=== PATIENT | female | born 1945 | race African-American/Black ===

== ENCOUNTER 2017-03-01 13:49 | Emergency (ER) | payer OTHER ==
[~2017-03-01] VITALS: Ht 167.6 cm; Wt 104.8 kg
--- NOTE | ~2017-03-01 | EKG ---
[place] [address] [facility] [place] [address] ELECTROCARDIOGRAM REPORT Name: MAGDIEL HUBBARDTIANA AGRAWAL [facility] #: [facility] [id number] Admission: 03/01/17 Attend Phys: Discharge: 03/01/17 Date of : 43 Report #: [id number] THIS REPORT FOR: //name// [facility] Test Date: 2017-03-02 Test Time: 02:38:19 Pat Name: JORGE HUBBARD Department: Room: Gender: F Cargoman: . : 1945 Requested By: Antelmo De La Cruz Order Number: [id number] MD: Gurpreet Sanchez Measurements Intervals [place] Rate: 153 P: [place]: QRS: 100 QRSD: 89 T: -26 QT: 284 QTc: 454 Interpretive Statements Atrial fibrillation with rapid V-rate RVH with secondary repolarization abnrm ST depression, probably rate related Compared to ECG 11/02/2015 16:24:04 atrial fibrillation has replaced sinus rhythm nonspecific ST and T wave abnormality is now present Criteria for RVH now present Electronically Signed On 03-03-2017 8:49:32 CDT by Gurpreet Sanchez [email or web address] <ELECTRONICALLY SIGNED> By: Gurpreet Sanchez MD, [facility] 03/03/17 0849 0238 0238 Gurpreet Sanchez MD, [facility] /EPI
--- NOTE | ~2017-03-01 | EKG ---
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: : 1945 Requested By: Antelmo De La Cruz Order Number: [id number] MD: Gurpreet Sanchez Measurements Intervals [place] Rate: 78 P: 10 AR: 259 QRS: -15 QRSD: 88 T: 10 QT: 385 QTc: 439 Interpretive Statements Sinus rhythm Prolonged AR interval Left ventricular hypertrophy Poor R wave progression Compared to ECG 11/02/2015 16:24:04 No significant change was found Electronically Signed On 03-03-2017 8:39:26 CDT by Gurpreet Sanchez [email or web address] <ELECTRONICALLY SIGNED> By: Gurpreet Sanchez MD, [facility] 03/03/17 0839 06 06 Gurpreet Sanchez MD, [facility] /EPI
[~2017-03-01 13:49] MED LIST: ASPIR 8181 M1 PO; BACTRIM DS TAB1 EACH PO; CARDIZEM CD120 MG PO; COUMADIN 1MG TAB1 M1 PO; CYMBALTA30 MG PO; FOLIC ACID1 MG PO; HYDROCODONE-AP1 EAC6 PO; HYDROCODONE-AP1 EACH PO; IRON325 PO; LASIX 40 MG TAB40 M2 PO; LISINOPRIL10 MG PO; MIRALAX17 G1; OYSTER SHELL 51 EACH PO; POTASSIUM20 PO; PROBIOTIC1 EAC1 PO; PROSTAT; RIFADIN300 MG PO; TRINATE TABLET1 TAB PO; VITAMIN C500 M1 PO
[2017-03-01 15:06] LABS: ABSOLUTE NEUTROPHILS 4.4 thou/uL (1.4-8.2); BASOPHILS 0.5 % (0.0-2.0); EOSINOPHILS 1.4 % (0.0-3.0); HEMATOCRIT 36.4 % (37.0-47.0); HEMOGLOBIN 12.2 gm/dL (12.0-15.0); LYMPHOCYTES 16.8 % (24.0-44.0); MCH 29.4 pg (26.0-34.0); MCHC 33.6 g/dL (28.0-37.0); MCV 87.4 fL (80.0-100.0); MONOCYTES 5.5 % (1.0-8.0); PLATELET COUNT 236 thou/uL (150-400); POLYS 75.8 % (36.0-66.0); RBC 4.16 mil/uL (4.20-5.00); RDW 15.5 % (10.5-14.5); WBC 5.8 thou/uL (4.0-11.0)
[2017-03-01 15:09] LABS: MANUAL DIFF NO
[2017-03-01 15:19] LABS: ANION GAP 10 mmol/L (7-16); BUN 16 mg/dL (7-18); CHLORIDE 102 mmol/L (98-107); CO2 26 mmol/L (21-32); CREATININE 0.9 mg/dL (0.6-1.0); GLUCOSE 147 mg/dL (74-106); POTASSIUM 4.7 mmol/L (3.5-5.1); SODIUM 138 mmol/L (136-145)
[2017-03-01 15:32] LABS: ALBUMIN 3.1 g/dL (3.4-5.0); ALKALINE PHOSPHATASE 98 U/L (46-116); NT-PRO BRAIN NAT PEPTIDE 93 pg/mL (<300); SGOT 20 U/L (15-37); SGPT 17 U/L (30-65); TOTAL BILIRUBIN 0.2 mg/dL (<0.1-1.0); TOTAL PROTEIN 8.1 g/dL (6.4-8.2); TROPONIN-I < 0.04 ng/mL (<0.04-0.07)
[2017-03-01 16:28] LABS: URINE BILIRUBIN NEGATIVE (Negative); URINE BLOOD TRACE (Negative); URINE COLOR YELLOW; URINE GLUCOSE-RANDOM* NEGATIVE (Negative); URINE KETONES NEGATIVE (Negative); URINE NITRITE POSITIVE (Negative); URINE PROTEIN (DIPSTICK) TRACE (Negative); URINE SPECIFIC GRAVITY 1.025 (1.003-1.035); URINE UROBILINOGEN 0.2 E.U./dl (0.2-1.0)
[2017-03-01 16:48] LABS: BACTERIA >30 Many /HPF (None Seen); CASTS None Seen /LPF (None Seen); CRYSTALS None Seen /LPF (None Seen); SQUAMOUS >10 Many /LPF (0-3); URINE RBC 0-2 Rare /HPF (0-2); URINE WBC >25 Many /HPF (0-5)
[2017-03-01] MEDS ORDERED: BACTROBAN15 GM TP (17:00)
[2017-03-01] MEDS ORDERED: MACROBID 100 M100 M1 PO (17:00)
== END 2017-03-01 18:12 | disposition home or self-care (01) ==
LOC: ER 13:49
PROVIDERS: Physician Assistant
DX: R55 Syncope and collapse (principal); N39.0 Urinary tract infection, site not specified; L30.1 Dyshidrosis [pompholyx]; I13.0 Hypertensive heart and chronic kidney disease with heart failure and stage 1 through stage 4 chronic kidney disease, or unspecified chronic kidney disease; N18.9 Chronic kidney disease, unspecified; I50.9 Heart failure, unspecified; I25.10 Atherosclerotic heart disease of native coronary artery without angina pectoris; I48.91 Unspecified atrial fibrillation; F10.99 Alcohol use, unspecified with unspecified alcohol-induced disorder; M19.90 Unspecified osteoarthritis, unspecified site; Z98.890 Other specified postprocedural states; Z87.891 Personal history of nicotine dependence

== ENCOUNTER → 2017-03-23 | Outpatient (CLI) | payer OTHER ==
[~2017-03-23] MED LIST changes: +BACTROBAN15 GM TP; +MACROBID 100 M100 M1 PO
== END ==
LOC: CAT 09:59
DX: L03.317 Cellulitis of buttock (principal); M13.851 Other specified arthritis, right hip; M25.451 Effusion, right hip

== ENCOUNTER 2017-07-14 18:28 | Inpatient (IN) | payer OTHER ==
[~2017-07-14] VITALS: Ht 167.6 cm; Wt 112.7 kg
--- NOTE | ~2017-07-14 | EKG ---
[address] [place] [address] ELECTROCARDIOGRAM REPORT Name: JORGE HUBBARD Room #: 364-P ADM IN M.R.#: [id number] Admission: 07/14/17 Attend Phys: Gibran Garcia MD Discharge: Date of : 43 Report #: [id number] THIS REPORT FOR: //name// [facility] ED Test Date: 2017-07-14 Test Time: 18:48:13 Pat Name: JORGE HUBBARD Department: Room: 364 Gender: F Client Onboarding Analyst: GALE : 1945 Requested By: Itzel Ponce Order Number: [id number] MD: Gurpreet Sanchez Measurements Intervals [place] Rate: 176 P: [place]: QRS: -9 QRSD: 82 T: 33 QT: 271 QTc: 464 Interpretive Statements Atrial fibrillation with rapid V-rate ST depression, probably rate related Compared to ECG 03/02/2017 02:38:19 Right ventricular hypertrophy no longer present ST (T wave) deviation still present Electronically Signed On 07-15-2017 15:53:51 ONCOLOGY PHYSICIAN by Gurpreet Sanchez [email or web address] <ELECTRONICALLY SIGNED> By: Gurpreet Sanchez MD, [facility] 07/15/17 1553 1848 1848 Gurpreet Sanchez MD, [facility] /EPI
--- NOTE | ~2017-07-14 | H ---
[facility] [place] [address] HISTORY AND PHYSICAL Name: JORGE HUBBARD Room #: 364-P ADM IN M.R.#: [id number] Admission: 07/14/17 Attend Phys: Gibran Garcia MD Discharge: Date of : 43 Report #: [id number] THIS REPORT FOR: //name// CC: Cisco Garcia DATE OF SERVICE: 07/14/2017 HISTORY OF PRESENT ILLNESS: A 72-year-old female with a rapid heart rate at the [facility]: This is a patient who began to feel poorly at [facility] and she became concerned as did the staff and so she was transferred here and found to be in rapid atrial fibrillation. She really had no other symptoms leading up to this other than generalized malaise. PAST MEDICAL HISTORY: Significant for atrial fibrillation in the past. 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 ALLERGIES: SHE HAS ALLERGIES TO FELDENE AND DICLOFENAC. MEDICATIONS: List includes Bactrim, rifampin, diltiazem, aspirin, hydrocodone, duloxetine, nystatin, MiraLax, Silvadene, and vitamin ointment. PAST MEDICAL HISTORY: So my understanding is she has also had a right hip removal and so she is not ambulatory at this time, at the [facility]. Apparently, she is also on chronic suppression, but otherwise, her past history really is unremarkable. FAMILY HISTORY: Negative. SOCIAL HISTORY: She lives in [place]. No smoking or alcohol of any significance. REVIEW OF SYSTEMS: Really, no other complaints, no cardiopulmonary, GI complaints at this time. PHYSICAL EXAMINATION: GENERAL: Shows a delightful lady. She is lying in bed. She is awake, alert and oriented. She is in absolutely no distress. Her family is at the bedside. VITAL SIGNS: Stable. Her heart rate was around 100. HEENT: Otherwise, negative. NECK: Supple, without thyromegaly or adenopathy. CHEST: Clear. CARDIOVASCULAR: Shows an irregular rhythm without definite murmur. Rate around 100. ABDOMEN: Soft and nontender, without hepatosplenomegaly. EXTREMITIES: No cyanosis, clubbing or edema. [facility] [address] [place] [address] HISTORY AND PHYSICAL Name: JORGE HUBBARD TANJA Room #: 364-P ADM IN .R.#: [id number] Admission: 07/14/17 Attend Phys: Gibran Garcia MD Discharge: Date of : 43 Report #: [id number] NEUROLOGIC: Showed nothing focal. ASSESSMENT AND PLAN: This is a patient with a rapid atrial fibrillation who will probably need anticoagulation and attempts at cardioversion at some point if she does not convert on her own. The addition of amiodarone probably will be of benefit here. By: [id number] [id number] Cisco Alanis MD /PMT
--- NOTE | ~2017-07-14 | 2DMMODE ---
[facility] [address] [place] [address] 2 D/M-MODE ECHOCARDIOGRAM Name: JORGE HUBBARD Room #: 364-P ADM IN M.R.#: [id number] Admission: 07/14/17 Attend Phys: Jeremias Dow Discharge: Date of : 43 Date of Service: 07/17/17 1440 Report #: [id number] THIS REPORT FOR: //name// APPROVED REPORT Study performed: 07/17/2017 12:09:46 EXAM: Comprehensive 2D, Doppler, and color-flow Echocardiogram Patient Location: Bedside Room #: 364 Status: routine BSA: 2.20 HR: 90 bpm BP: 132/53 mmHg Rhythm: Atrial Fibrillation Other Information Study Quality: Adequate Technically limited study due to morbid obesity. Indications Atrial Fib with RVR 2D Dimensions RVDd: 39.97 mm LVEF(%): 32.17 (>50%) IVSd: 11.86 (7-11mm) LVOT Diam: 21.87 (18-24mm) LVDd: 40.46 mm PWd: 11.63 (7-11mm) LVDs: 34.39 (25-40mm) Aortic Root: 32.53 mm Pettit's LVEF: 32.17 % Volumes Left Atrial Volume (Systole) Single Plane 4CH: 48.00 mL Single Plane 2CH: 73.31 mL LA ESV Index: 29.00 mL/m2 Aortic Valve AoV Peak Mark.: 0.95 m/s AO Peak Gr.: 4.29 mmHg LVOT Max P.64 mmHg LVOT Max V: 0.64 m/s ED Vmax: 2.53 cm2 Mitral Valve MV Decel. Time: 166.43 ms [facility] [place] [address] 2 D/M-MODE ECHOCARDIOGRAM Name: JORGE HUBBARD [place] Room #: 364-P [facility] [place] ..#: [id number] Admission: 07/14/17 Attend Phys: Jeremias Dow Discharge: Date of : 43 Date of Service: 07/17/17 1440 Report #: [id number] MV E Max Mark.: 0.88 m/s Pulmonary Valve PV Peak Mark.: 0.75 m/s PV Peak Gr.: 2.30 mmHg Tricuspid Valve TR Peak Mark.: 2.76 m/s RAP Estimate: 10.00 mmHg TR Peak Gr.: 30.44 mmHg PA Pressure: 40.00 mmHg Left Ventricle The left ventricle is normal size. Mild concentric left ventricular hypertrophy. The left ventricular systolic function is low normal. LVEF is 50%. This study is not technically sufficient to allow evaluation of the LV diastolic function due to atrial fibrillation. Right Ventricle The right ventricle is normal size. The right ventricular systolic function is normal. Atria The left atrium size is normal. The right atrium size is normal. Aortic Valve The Aortic valve is mildly sclerotic. Trace aortic regurgitation. There is no aortic valvular stenosis. Mitral Valve The mitral valve is normal in structure. Trivial mitral annular calcification. Trace to mild mitral regurgitation. Tricuspid Valve The tricuspid valve is normal in structure. Mild to moderate tricuspid regurgitation. Estimated PAP is 40mmHg. Pulmonic Valve The pulmonary valve is normal in structure. Trace pulmonic regurgitation. Great Vessels The aortic root is normal in size. Ascending aorta is not well visualized. IVC is normal in size and collapses <50% with inspiration. [facility] [address] [place] [address] 2 D/M-MODE ECHOCARDIOGRAM Name: JORGE HUBBARD TANJA Room #: 364-P ADM IN .R.#: [id number] Admission: 07/14/17 Attend Phys: Jeremias Dow Discharge: Date of : 43 Date of Service: 07/17/17 1440 Report #: [id number] Pericardium There is no pericardial effusion. <Conclusion> The left ventricle is normal size. LVEF is 50%. The left atrium size is normal. The right atrium size is normal. The Aortic valve is mildly sclerotic. Trace aortic regurgitation. The mitral valve is normal in structure. Trivial mitral annular calcification. Trace to mild mitral regurgitation. The tricuspid valve is normal in structure. Mild to moderate tricuspid regurgitation. Estimated PAP is 40mmHg. The pulmonary valve is normal in structure. Trace pulmonic regurgitation. There is no pericardial effusion. <ELECTRONICALLY SIGNED> By: Corey Mcqueen MD 07/17/17 1440 1440 1440 Corey Mcqueen MD /INF
[~2017-07-14 18:28] MED LIST changes: -MIRALAX17 G1; +MIRALAX17 G1 PO
[2017-07-14 18:29] VITALS: BP 116/67
[2017-07-14 18:56] LABS: ABSOLUTE NEUTROPHILS 4.5 thou/uL (1.4-8.2); BASOPHILS 0.6 % (0.0-2.0); EOSINOPHILS 0.3 % (0.0-3.0); HEMOGLOBIN 12.8 gm/dL (12.0-15.0); LYMPHOCYTES 12.9 % (24.0-44.0); MCHC 33.8 g/dL (28.0-37.0); MCV 85.7 fL (80.0-100.0); MONOCYTES 9.2 % (1.0-8.0); PLATELET COUNT 236 thou/uL (150-400); RBC 4.43 mil/uL (4.20-5.00); WBC 5.9 thou/uL (4.0-11.0)
[2017-07-14 18:59] LABS: MANUAL DIFF NO
[2017-07-14 19:01] LABS: CALCIUM 9.1 mg/dL (8.5-10.1); CREATININE 1.2 mg/dL (0.6-1.0); POTASSIUM 4.6 mmol/L (3.5-5.1)
[2017-07-14 19:08] LABS: ALBUMIN 3.1 g/dL (3.4-5.0); DIRECT BILIRUBIN 0.3 mg/dL (<0.1-0.3); TOTAL BILIRUBIN 0.6 mg/dL (<0.1-1.0)
[2017-07-14 21:34] LABS: URINE BILIRUBIN 2+ (Negative); URINE BLOOD TRACE (Negative); URINE COLOR YELLOW; URINE GLUCOSE-RANDOM* TRACE (Negative); URINE KETONES TRACE (Negative); URINE PROTEIN (DIPSTICK) TRACE (Negative); URINE UROBILINOGEN 0.2 E.U./dl (0.2-1.0)
[2017-07-14 21:36] LABS: URINE LEUKOCYTES-REFLEX TRACE (Negative)
[2017-07-14 21:37] LABS: ICTOTEST (BILI CONFIRMATORY) Positive (Negative)
[2017-07-14 21:50] LABS: CASTS None Seen /LPF (None Seen); CRYSTALS None Seen /LPF (None Seen); SQUAMOUS 0-3 Few /LPF (0-3); YEAST-REFLEX Present (None Seen)
[2017-07-14 21:51] LABS: URINE RBC 0-2 Rare /HPF (0-2); URINE WBC-REFLEX 0-5 Rare /HPF (0-5)
[2017-07-14 23:07] VITALS: BP 151/70
[2017-07-14 23:34] VITALS: BP 125/53
[2017-07-15 01:03] VITALS: BP 126/70
[2017-07-15] MEDS ORDERED: NYATA15 GM TOP (02:13)
[2017-07-15] MEDS ORDERED: SILVADENE20 GM TOP (02:14)
[2017-07-15] MEDS ORDERED: VITAMIN A & D113 G1 TOP (02:15)
[2017-07-15] MEDS ORDERED: TYLENOL325 MG PO (02:16)
[2017-07-15] MEDS ORDERED: HYDROCERIN LOT236 ML TOP (02:21)
[2017-07-15] MEDS ORDERED: UNICOMPLEX M TA1 TA1 PO (02:23)
[2017-07-15 03:48] VITALS: BP 127/65
[2017-07-15 08:00] VITALS: BP 126/50
[2017-07-15 13:13] VITALS: BP 119/57
[2017-07-15 16:23] VITALS: BP 122/58
[2017-07-15 19:15] VITALS: BP 111/53
[2017-07-16 04:00] VITALS: BP 105/53
[2017-07-16 09:00] VITALS: BP 135/65
[2017-07-16 11:40] VITALS: BP 119/60
[2017-07-16 17:00] VITALS: BP 131/58
[2017-07-17 05:00] VITALS: BP 128/53
[2017-07-17 08:19] VITALS: BP 132/53
[2017-07-17 12:00] VITALS: BP 116/72
[2017-07-17 16:16] VITALS: BP 121/66
[2017-07-17 19:53] VITALS: BP 113/55
[2017-07-18 03:16] VITALS: BP 101/47
[2017-07-18 06:38] LABS: HEMATOCRIT 31.1 % (37.0-47.0); HEMOGLOBIN 10.5 gm/dL (12.0-15.0); MCH 29.1 pg (26.0-34.0); MCHC 33.7 g/dL (28.0-37.0); MCV 86.4 fL (80.0-100.0); RBC 3.6 mil/uL (4.20-5.00); WBC 3.1 thou/uL (4.0-11.0)
[2017-07-18 06:46] LABS: CALCIUM 8.4 mg/dL (8.5-10.1); CREATININE 0.9 mg/dL (0.6-1.0)
[2017-07-18 08:45] VITALS: BP 108/54
[2017-07-18] MEDS ORDERED: XARELTO10 MG PO (09:39)
[2017-07-18] MEDS ORDERED: DILTIAZEM 24HR120 M1 PO (09:39)
[2017-07-18] MEDS ORDERED: METOPROLOL SUCC50 MG PO (09:39)
[2017-07-18] MEDS ORDERED: HYDROCODONE-AP1 EACH PO (09:40)
[2017-07-18] MEDS ORDERED: MUCINEX600 MG PO (09:40)
[2017-07-18 11:30] VITALS: BP 119/54
== END 2017-07-18 16:03 | DRG 309 ==
LOC: ER 18:28 → EROBS 22:24 → 3W 22:24
PROVIDERS: Emergency Medicine; Internal Medicine Geriatric Medicine
DX: I48.0 Paroxysmal atrial fibrillation (principal); N39.0 Urinary tract infection, site not specified; Z68.41 Body mass index [BMI] 40.0-44.9, adult; I25.10 Atherosclerotic heart disease of native coronary artery without angina pectoris; I50.9 Heart failure, unspecified; N18.9 Chronic kidney disease, unspecified; M19.90 Unspecified osteoarthritis, unspecified site; E66.9 Obesity, unspecified; Z79.899 Other long term (current) drug therapy; Z87.891 Personal history of nicotine dependence; Z88.8 Allergy status to other drugs, medicaments and biological substances; Z79.82 Long term (current) use of aspirin; I12.9 Hypertensive chronic kidney disease with stage 1 through stage 4 chronic kidney disease, or unspecified chronic kidney disease
CPT/HCPCS: 10879